=== PATIENT | female | born 1990 | race Caucasian/White ===

== ENCOUNTER 2021-03-27 21:58 | Emergency (ER) | payer SELFPAY ==
[~2021-03-27] VITALS: Ht 154.9 cm; Wt 72.6 kg
[2021-03-27 22:09] VITALS: BP 158/101
== END 2021-03-28 01:27 | disposition left against medical advice (07) ==
LOC: MED 21:58
DX: R25.1 Tremor, unspecified (principal); Z53.21 Procedure and treatment not carried out due to patient leaving prior to being seen by health care provider